=== PATIENT | female | born 1985 | race Asian ===

== ENCOUNTER 2019-02-03 03:47 | Emergency (ER) | payer SELFPAY ==
[~2019-02-03] VITALS: Ht 165.1 cm; Wt 64.4 kg
[2019-02-03 03:59] VITALS: BP 118/86; Ht 165.1 cm; Wt 64.4 kg
== END 2019-02-03 04:31 | disposition home or self-care (01) ==
LOC: ED 03:47
DX: N39.0 Urinary tract infection, site not specified (principal); Z98.890 Other specified postprocedural states